=== PATIENT | female | born 1950 | race Caucasian/White ===

== ENCOUNTER → 2024-04-18 11:38 | Outpatient (REF) | payer MEDICARE, OTHER, SELFPAY | LOC: RAD 11:38 | PROVIDERS: ATTENDING PHYSICIAN Physician Assistant; FAMILY PHYSICIAN Family Medicine | DX: R05.1 Acute cough (principal) | CPT/HCPCS: 71046 ==

== ENCOUNTER 2024-06-09 10:14 | Emergency (ER) | payer MEDICARE, OTHER, SELFPAY ==
[2024-06-09 10:20] VITALS: BP 136/93
[2024-06-09 11:19] VITALS: BP 117/82
[2024-06-09 11:35] LABS: % Basophils 1.3 % (0-2); % Eosinophils 4.8 % (0-6); % Immature Granulocytes 0.3 % (0-0.5); % Lymphocytes 22.1 % (20.5-51.1); % Monocytes 9.1 % (1.7-9.3); % Neutrophils 62.4 % (42.2-75.2); Absolute Basophils 0.1 10^3/uL (0-0.2); Absolute Eosinophils 0.4 10^3/uL (0-0.7); Absolute Monocytes 0.8 10^3/uL (0.1-0.6); Absolute Neutrophils 5.6 10^3/uL (1.4-6.5); Hematocrit 38.8 % (37.0-47.0); Mean Corp Hgb Conc. 33.5 g/dL (33.0-37.0); Mean Corpuscular Hgb 35.2 pg (27.0-31.0); Mean Corpuscular Volume 105.1 fL (81.0-99.0); Mean Platelet Volume 9.3 fL (7.4-10.4); Nucleated Red Blood Cells % 0 %; Platelet Count 221 10^3/uL (130-400); Red Blood Cell Count 3.69 10^6/uL (4.20-5.40); Red Cell Dist. Width 14.3 % (11.5-14.5); White Blood Cell Count 8.9 10^3/uL (4.8-10.8)
[2024-06-09 11:49] LABS: ALT (SGPT) 17 U/L (0-35); AST (SGOT) 24 U/L (14-36); Albumin 4.7 g/dl (3.5-5.0); Alkaline Phosphatase 78 U/L (38-126); Blood Urea Nitrogen 33 mg/dl (7-17); Calcium 9.6 mg/dl (8.4-10.2); Carbon Dioxide 24 mmol/L (22-30); Chloride 102 mmol/L (98-107); Glucose 122 mg/dl (70-99); Potassium 4.8 mmol/L (3.5-5.1); Sodium 136 mmol/L (135-145); Total Bilirubin 0.4 mg/dl (0.2-1.3); Total Protein 7.3 g/dl (6.3-8.2); eGFR 48.39
[2024-06-09 12:00] VITALS: BP 132/80
[2024-06-09] MEDS: LOPRESSOR 50 MG PO (12:12)
[2024-06-09] MEDS: BENADRYL 25 MG IV (12:15)
[2024-06-09] MEDS: DECADRON 10 MG IV (12:15)
[2024-06-09] MEDS: NSS 1000 IV (12:16)
[2024-06-09] MEDS: DUONEB 3 ML INH (12:16)
[2024-06-09] MEDS: PEPCID 20 MG IV (12:16)
[2024-06-09 12:18] LABS: TSH Reflex To Free T4 2.39 uIU/ml (0.47-4.68)
[2024-06-09 12:23] LABS: NT-proBNP 743 pg/ml
--- NOTE | 2024-06-09 12:26 | ED.GENMED ---
History of Present Illness
General
Chief Complaint: Allergic Reaction
Source: patient and spouse
Exam Limitations: none
Time Seen by Provider: 06/09/24 11:15
Nursing documentation reviewed up to this point in time: agreed with
History of Present Illness
History of Present Illness:
73-year-old female with past medical history of asthma hypothyroidism, bipolar disorder presenting to the emergency department today with concerns of possible allergic reaction over the past 4 days with itchiness intermittent rash to the chest,
swelling of her tongue as well as sensation of wheezing at home. She has been taking Benadryl without relief over the past 4 days. Also had some intermittent fluttering of her chest denies specific pain or shortness of breath.
Review of Systems
Review of Systems
Allergies reviewed?: Yes
All Other Systems: ROS reviewed and negative except as documented in HPI and ROS
Phy Exam
Physical Exam
Physical Exam:
GENERAL: Alert , in no apparent distress
EYE: pupils equal and reactive
NECK: Supple, no significant adenopathy.
ENT: Possible slight swelling of the tongue normal-appearing posterior pharynx patent airway o/p clr, mmm.
CARDIAC: Irregularly irregular and tachycardic
LUNGS: Slight end expiratory wheeze diffusely
ABDOMEN: Soft, without focal tenderness, no r/g, no cvat
NEUROLOGICAL: Alert and oriented, no focal neuro deficits
SKIN: Warm and dry, skin intact.
MUSCULOSKELETAL: No edema, well perfused.
PSYCH: Normal and appropriate interaction.
Course
Orders/Labs/Results
Orders:
Orders
06/09/24 11:21
Electrocardiogram (*1) Urgent
Reason for Study: Shortness of Breath
EKG- Treatment ONCE
06/09/24 11:22
Complete Blood Count/With Diff Urgent
Comprehensive Metabolic Panel Urgent
NT-proBNP Urgent
Comment: ADD ON
TSH Reflex To Free T4 Urgent
06/09/24 11:43
Add On- LAB Urgent
Tests Added?: BNP
0.9% Sodium Chloride 1000 ml [Nss] 1,000 ml IV BOLUS
Dexamethasone Sod Phosphate [Decadron] 10 mg IV NOW STA
Diphenhydramine [Benadryl] 25 mg IV NOW STA
Famotidine [Pepcid] 20 mg IV NOW STA
Ipratropium/Albuterol Sulfate [Duoneb] 3 ml INH R NOW ONE
Chest [CR Chest - 2 Views ] Urgent
Comment:
Reason For Exam: SOB
06/09/24 11:48
Metoprolol [Lopressor] 50 mg PO NOW STA
06/09/24 14:28
Apixaban [Eliquis] 5 mg PO ONCE ONE
Abnormal Lab Results
06/09/24
11:22
RBC 3.69 L 10^6/uL
(4.20-5.40)
MCV 105.1 H fL
(81.0-99.0)
MCH 35.2 H pg
(27.0-31.0)
Absolute Monos (auto) 0.8 H 10^3/uL
(0.1-0.6)
BUN 33 H mg/dl
(7-17)
Creatinine 1.2 H mg/dL
(0.6-1.0)
Glucose 122 H mg/dl
(70-99)
06/09/24 11:22
06/09/24 11:22
Vital Signs
Initial and Last Documented VS:
Initial Vital Signs
Temp
97.5 F
06/09/24 10:17
Last Documented Vital Signs
Temp Pulse Resp BP Pulse Ox
97.5 F 101 15 124/80 93
06/09/24 10:17 06/09/24 13:15 06/09/24 13:15 06/09/24 13:12 06/09/24 13:15
MDM/Problems Addressed
MDM/Problems Addressed:
73-year-old female presenting to the emergency department with concerns of intermittent rash and itchiness to the chest as well as potential swelling of the tongue and wheezing over the past 4 days. Has been taking Benadryl without relief. Upon
arrival initial vital signs are normal. Then heart rate increased and was irregular seem to be in A-fib. EKG confirming A-fib. No history of such. Does not have significant symptoms of atrial fibrillation does otherwise have some wheezing and
evidence of allergic reaction was treated for the allergic reaction also given dose of metoprolol for rate control. Patient with significant improvement of heart rate into the 90s after receiving metoprolol. Asymptomatic able to ambulate.
Significant improvement of wheezing and swelling after receiving steroid and nebulizer treatment. Able for outpatient allergic reaction. Very unlikely be related to angioedema due to patient's arm considering associated wheezing and intermittent
rash rather than isolated angioedema. Otherwise additionally started on anticoagulant. Case was discussed with cardiology and they will have her follow-up closely for further management.
*Critical Care Note
Total Time (30-74mins, 75-104mins- exclusive of procedures): Not Applicable
ED Attending Note
-
Portions of this chart may have been created with voice recognition software.� Occasional wrong word or��sound alike� substitutions may have occurred due to the inherent limitations of voice recognition software.
Discharge Plan
Departure
Patient Disposition: Home (Routine Discharge)
Date of Disposition: 06/09/24
Time of Disposition: 14:56
Patient with high blood pressure during this ER visit?: No
Condition: Good
Covid-19: Not Applicable
Discharge Problem:
Atrial fibrillation, Allergic reaction
Instructions: Atrial fibrillation - Discharge instructions, Allergic reaction - ED discharge instructions
Prescriptions:
New
prednisone 20 mg tablet
40 mg PO DAILY 4 Days Qty: 8 0RF
Zyrtec 10 mg capsule
10 mg PO BID 4 Days Qty: 8 0RF
famotidine 20 mg tablet
20 mg PO BID 4 Days Qty: 8 0RF
epinephrine [EpiPen 2-Freddy] 0.3 mg/0.3 mL auto-injector
0.3 mg IM Q5-15M PRN (Reason: anaphylaxis) Qty: 2 0RF
metoprolol tartrate 25 mg tablet
25 mg PO BID 14 Days Qty: 28 0RF
Eliquis 5 mg tablet
5 mg PO BID 30 Days Qty: 60 0RF
Referrals:
Kristen Atkins DO [Family Provider] -
Haven Henderson DO [Community] - Follow up in 5-7 days
Alessandro Devries MD [Active] - Follow up in 5-7 days
Activity Restrictions/Additional Instructions:
You came to the emergency department today with concerns of allergic reaction. You are started on medications. Please take prednisone 40 mg once daily for the next 4 days as well as Zyrtec twice daily and famotidine once daily. Additionally
please take metoprolol twice daily for the new onset of atrial fibrillation as well as Eliquis twice daily. 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 Return for any worsening, new or concerning symptoms.
Interventions
Interventions:
*General Assessment Last Done: 06/09/24 11:27
*Neglect/Abuse Screening Last Done: 06/09/24 11:27
*ED COVID-19 Vaccine History Last Done: 06/09/24 10:21
ED- Cardiac Assessment Last Done: 06/09/24 11:30
ED- Pulmonary Assessment Last Done: 06/09/24 11:24
ED-Skin Assessment Last Done: 06/09/24 11:25
Discharge Date and Time
Print Language: YAKUT
[2024-06-09 13:12] VITALS: BP 124/80
[2024-06-09] MEDS: ELIQUIS 5 MG PO (15:11)
== END 2024-06-09 15:30 | disposition home or self-care (01) ==
LOC: EMR 10:14
PROVIDERS: EMERGENCY PHYSICIAN Student in an Organized Health Care Education/Training Program; FAMILY PHYSICIAN Family Medicine
DX: I48.91 Unspecified atrial fibrillation (principal); T78.40XA Allergy, unspecified, initial encounter; X58.XXXA Exposure to other specified factors, initial encounter; E03.9 Hypothyroidism, unspecified; J45.909 Unspecified asthma, uncomplicated
CPT/HCPCS: 99285; 94640; 96374; 96375; 96361; 71046; 80053; 83880; 84443; 85025; 93005

== ENCOUNTER → 2024-07-31 13:54 | Outpatient (REF) | payer MEDICARE, OTHER, SELFPAY | LOC: RCS 13:54 | PROVIDERS: ATTENDING PHYSICIAN Internal Medicine Cardiovascular Disease; FAMILY PHYSICIAN Nurse Practitioner | DX: R06.02 Shortness of breath (principal) | CPT/HCPCS: 93306 ==